=== PATIENT | female | born 1975 | race Caucasian/White ===

== ENCOUNTER 2018-07-12 02:53 | Emergency (ER) | payer OTHER ==
[~2018-07-12] VITALS: Ht 162.6 cm; Wt 77.1 kg
--- NOTE | 2018-07-12 03:28 | PHYS DOC ---
Past Medical History Past Medical History: Additional Disease Additional Past Medical Histor: shingles Past Surgical History: Appendectomy, Cholecystectomy, Other Additional Past Surgical Histo: IVF Alcohol Use: None Drug Use: None Adult General Chief Complaint Chief Complaint: ANXIETY/PANIC ATTACK HPI HPI Patient is a 43 yo female w/ pmh anxiety and panic attack who presents with complaint of shortness of breath and "feeling weird". Patient reports she was laying in bed when she felt short of breath, began seeing spots as though she would faint, and feeling "not right". She has had previous episodes of anxiety/ panic attacks and is not on medication. Patient attempted to calm herself by taking her pulse, focusing on her breathing, and waking her to sit with her. She continued to feel altered and called EMS for transport to the hospital. Patient denies chest pain throughout the whole event. She admits that she has had one previous similar incident in January 2018 and was treated for anxiety at [facility]. Patient denies increased stress and cannot identify trigger for tonight's symptoms. She denies recent travel. Denies chest pain, headaches, nausea, vomiting, abdominal pain, diarrhea or painful urination. Does admit to chronic pain in L shoulder and has appointment with PCP ( Maria G Becerra) on Friday. She reports she should begin period "any day now". Patient also admits to being a heavy smoker but denies alcohol, drug, or weight loss substances. Review of Systems Review of Systems Constitutional: Denies fever or chills [] Eyes: Denies change in visual acuity, redness, or eye pain. Admits to redness and pressure in L eye for 2 months which has been evaluated by physician. HENT: Denies nasal congestion or sore throat [] Respiratory: Denies cough. Admits shortness of breath. Cardiovascular: Denies chest pain, admits to feeling like she has irregular heart beat. GI: Denies abdominal pain, nausea, vomiting, bloody stools or diarrhea [] : Denies dysuria or hematuria [] Musculoskeletal: Denies back pain or joint pain. Denies extremity swelling, Denies muscle aches or pain. Integument: Denies rash or skin lesions Neurologic: Denies headache, focal weakness or sensory changes. Admits to "feeling as though she would pass out" Complete systems were reviewed and found to be within normal limits, except as documented in this note. Current Medications Current Medications Current Medications Medications (Trade) Dose Ordered Sig/Karuna Start Time Stop Time Status Last Admin Dose Admin Lorazepam (Ativan) 0.5 mg 1X ONCE 07/12/18 03:30 07/12/18 03:31 DC 07/12/18 03:34 0.5 MG Allergies Allergies Allergies Coded Allergies Type Severity Reaction Last Updated Verified Penicillins Allergy Intermediate 07/12/18 Yes Physical Exam Physical Exam Constitutional: Well developed, well nourished, non-toxic appearance. [] HENT: Normocephalic, atraumatic, oropharynx moist, no oral exudates, nose normal. [] Eyes: PERRLA, EOMI, mild conjunctival erythema medial aspect L eye, no discharge. [] Neck: Normal range of motion, no tenderness, supple, no stridor. No thyromegaly. Cardiovascular:Heart rate regular rhythm, no murmur [] Lungs & Thorax: Bilateral breath sounds clear to auscultation [] Abdomen: Soft, no tenderness, no masses, no pulsatile masses. [] Skin: Warm, dry, no erythema, no rash. [] Back: No tenderness, no CVA tenderness. [] Extremities: No tenderness, no cyanosis, no clubbing, ROM intact, no edema. [] Neurologic: Alert and oriented X 3, normal motor function, normal sensory function, no focal deficits noted. [] Psychologic: Affect normal, judgement normal, mood normal. [] Current Patient Data Vital Signs Vital Signs Date Time Temp Pulse Resp B/P (MAP) Pulse Ox O2 Delivery O2 Flow Rate FiO2 07/12/18 02:58 97.7 99 18 146/78 (100) 99 Room Air 97.7 Lab Values Laboratory Tests Test 07/12/18 02:58 07/12/18 03:00 07/12/18 03:13 Urine Collection Type Unknown Urine Color Yellow Urine Clarity Clear Urine pH 5.0 Urine Specific [place] 1.010 Urine Protein Negative mg/dL (NEG-TRACE) Urine Glucose (UA) Negative mg/dL (NEG) Urine Ketones (Stick) Negative mg/dL (NEG) Urine Blood Negative (NEG) Urine Nitrite Negative (NEG) Urine Bilirubin Negative (NEG) Urine Urobilinogen Dipstick 0.2 mg/dL (0.2 mg/dL) Urine Leukocyte Esterase Negative (NEG) Urine RBC 0 /HPF (0-2) Urine WBC 1-4 /HPF (0-4) Urine Squamous Epithelial Cells Mod /LPF Urine Bacteria Few /HPF (0-FEW) Urine Mucus Slight /LPF Urine Opiates Screen Neg (NEG) Urine Methadone Screen Neg (NEG) Urine Barbiturates Neg (NEG) Urine Phencyclidine Screen Neg (NEG) Urine Amphetamine/Methamphetamine Neg (NEG) Urine Benzodiazepines Screen Neg (NEG) Urine Cocaine Screen Neg (NEG) Urine Cannabinoids Screen Neg (NEG) Urine Ethyl Alcohol Neg (NEG) White Blood Count 7.5 x10^3/uL (4.0-11.0) Red Blood Count 5.13 x10^6/uL (3.50-5.40) Hemoglobin 14.0 g/dL (12.0-15.5) Hematocrit 41.1 % (36.0-47.0) Mean Corpuscular Volume 80 fL (79-100) Mean Corpuscular Hemoglobin 27 pg (25-35) Mean Corpuscular Hemoglobin Concent 34 g/dL (31-37) Red Cell Distribution Width 14.4 % (11.5-14.5) Platelet Count 133 x10^3/uL (140-400) L Neutrophils (%) (Auto) 63 % (31-73) Lymphocytes (%) (Auto) 29 % (24-48) Monocytes (%) (Auto) 6 % (0-9) Eosinophils (%) (Auto) 1 % (0-3) Basophils (%) (Auto) 1 % (0-3) Neutrophils # (Auto) 4.8 x10^3uL (1.8-7.7) Lymphocytes # (Auto) 2.2 x10^3/uL (1.0-4.8) Monocytes # (Auto) 0.4 x10^3/uL (0.0-1.1) Eosinophils # (Auto) 0.1 x10^3/uL (0.0-0.7) Basophils # (Auto) 0.1 x10^3/uL (0.0-0.2) Sodium Level 140 mmol/L (136-145) Potassium Level 3.6 mmol/L (3.5-5.1) Chloride Level 102 mmol/L (98-107) Carbon Dioxide Level 26 mmol/L (21-32) Anion Gap 12 (6-14) Blood Urea Nitrogen 11 mg/dL (7-20) Creatinine 0.7 mg/dL (0.6-1.0) Estimated GFR (Cockcroft-Gault) 92.2 BUN/Creatinine Ratio 16 (6-20) Glucose Level 95 mg/dL (70-99) Calcium Level 9.2 mg/dL (8.5-10.1) Magnesium Level 1.9 mg/dL (1.8-2.4) Total Bilirubin 0.3 mg/dL (0.2-1.0) Aspartate Amino Transferase (AST) 27 U/L (15-37) Alanine Aminotransferase (ALT) 43 U/L (14-59) Alkaline Phosphatase 80 U/L (46-116) Troponin I Quantitative < 0.017 ng/mL (0.000-0.055) Total Protein 7.3 g/dL (6.4-8.2) Albumin 4.0 g/dL (3.4-5.0) Albumin/Globulin Ratio 1.2 (1.0-1.7) Ethyl Alcohol Level < 10 mg/dL (0-10) POC Urine HCG, Qualitative Hcg negative (Negative) Laboratory Tests 07/12/18 03:00 Laboratory Tests 07/12/18 03:00 EKG EKG @0326; HT 70 BPM; Sinus rhythm. Radiology/Procedures Radiology/Procedures [] Course & Med Decision Making Course & Med Decision Making Patient is 43 yo female smoker w/ PMH anxiety and panic attacks who presents w/ complaint of shortness of breath and "not feeling right". Patient reports her symptoms felt similar to a previous anxiety attack however they are more intense tonight. She denies chest pain during the event. On physical exam patient is in no acute distress and resting comfortably in bed, however she did begin to cry when asking about HPI. Patient was never tachycardic or hypoxic. EKG revealed normal sinus rhythm however cardiac monitoring showed intermittent single PVCs. Lab work was WNL. Patient treated with ativan with adequate symptomatic relief. Discussed with patient that symptoms were likely d/t anxiety , although we cannot discover the etiology of the PVCs. Recommended to patient that she was okay to dc home but should follow up with PCP and career counselor. Gave patient contact information for [facility]. Patient voiced understanding and agreement with the plan to dc home with follow up. Recommended to the patient to return to ED if symptoms returned. Dragon Disclaimer Dragon Disclaimer This electronic medical record was generated, in whole or in part, using a voice recognition dictation system. Departure Departure Impression: Primary Impression: Palpitation Disposition: HOME, SELF-CARE Condition: STABLE Referrals: TUAN CARTAGENA (PCP) ZOE VENEGAS MD Patient Instructions: Palpitations, [id number] DEEP HOFF DO Jul 12, 2018 03:28
[2018-07-12 04:04] LABS: BASO # 0.1 x10^3/uL (0.0-0.2); BASO % 1 % (0-3); EOS # 0.1 x10^3/uL (0.0-0.7); EOS % 1 % (0-3); HEMATOCRIT 41.1 % (36.0-47.0); LYMPH # 2.2 x10^3/uL (1.0-4.8); LYMPH % 29 % (24-48); MEAN CORPUSCULAR HEMOGLOBIN 27 pg (25-35); MEAN CORPUSCULAR HGB CONC 34 g/dL (31-37); MEAN CORPUSCULAR VOLUME 80 fL (79-100); MONO # 0.4 x10^3/uL (0.0-1.1); MONO % 6 % (0-9); NEUT # 4.8 x10^3uL (1.8-7.7); NEUT % 63 % (31-73); PLATELET COUNT 133 x10^3/uL (140-400); RED BLOOD COUNT 5.13 x10^6/uL (3.50-5.40); RED CELL DISTRIBUTION WIDTH 14.4 % (11.5-14.5); WHITE BLOOD COUNT 7.5 x10^3/uL (4.0-11.0)
[2018-07-12 04:06] LABS: BILIRUBIN,URINE NEGATIVE (NEG); CLARITY,URINE CLEAR; COLOR,URINE YELLOW; NITRITE,URINE NEGATIVE (NEG); PROTEIN,URINE NEGATIVE (NEG-TRACE); UROBILINOGEN,URINE 0.2 mg/dL (0.2 mg/dL)
[2018-07-12 04:18] LABS: SQUAMOUS EPITHELIAL CELL,UR MOD /LPF
[2018-07-12 04:19] LABS: BACTERIA,URINE FEW /HPF (0-FEW); RBC,URINE 0 /HPF (0-2)
[2018-07-12 04:28] LABS: BARBITURATES NEG (NEG); BENZODIAZEPINES NEG (NEG); CANNABINOIDS NEG (NEG); COCAINE NEG (NEG); METHADONE NEG (NEG); OPIATES NEG (NEG); PHENCYCLIDINE NEG (NEG)
[2018-07-12 04:29] LABS: CALCIUM 9.2 mg/dL (8.5-10.1); CREATININE 0.7 mg/dL (0.6-1.0); GFR 92.2; POTASSIUM 3.6 mmol/L (3.5-5.1)
[2018-07-12 04:30] VITALS: BP 110/63
[2018-07-12 04:31] LABS: AMPHETAMINE/METHAMPHETAMINE NEG (NEG)
[2018-07-12 04:35] LABS: ALBUMIN/GLOBULIN RATIO 1.2 (1.0-1.7); MAGNESIUM 1.9 mg/dL (1.8-2.4); TOTAL BILIRUBIN 0.3 mg/dL (0.2-1.0); TOTAL PROTEIN 7.3 g/dL (6.4-8.2)
[2018-07-12 04:46] LABS: FREE T4 1.05 ng/dL (0.76-1.46); THYROID STIM HORMONE (TSH) 3.088 uIU/mL (0.358-3.74)
--- NOTE | 2018-07-12 07:30 | EKG ---
[facility] [address] [place] [address] Test Date: 2018-07-12 Test Time: 03:26:34 Pat Name: MARIA M CAIN Department: Room: Gender: F Chief Financial Officer: : 1975 Requested By: DEEP HOFF Order Number: [id number] Reading MD: Measurements Intervals [place] Rate: 70 P: 28 [place]: 158 QRS: 14 QRSD: 82 T: 13 QT: 360 QTc: 391 Interpretive Statements SINUS RHYTHM NORMAL ECG RI6.01 No previous ECG available for comparison
== END 2018-07-12 04:45 | disposition home or self-care (01) ==
LOC: ER 02:53
DX: R00.2 Palpitations (principal); G89.29 Other chronic pain; M25.512 Pain in left shoulder; F17.200 Nicotine dependence, unspecified, uncomplicated; F41.0 Panic disorder [episodic paroxysmal anxiety]; Z90.49 Acquired absence of other specified parts of digestive tract; Z90.89 Acquired absence of other organs; Z88.0 Allergy status to penicillin
CPT/HCPCS: 36415; 80053; 80307; 81001; 81025; 82553; 83735; 84439; 84443; 84481; 84484; 85025; 93005; 96374; 99284; G0480; J2060

== ENCOUNTER → 2019-07-05 | Outpatient (CLI) | payer OTHER ==
--- NOTE | 2019-07-05 10:57 | KCIC ---
CERVICAL SPINE WO CONTRAST History: Chronic neck pain. Radiculopathy left upper extremity. Left upper extremity weakness. Technique: Multiplanar, multi sequential noncontrast MR imaging was performed of the cervical spine. Comparison: None Findings: Normal vertebral body height and alignment. No fracture. No pathologic signal abnormality within the cervical spinal cord. C2-C3: No canal or neuroforaminal narrowing. C3-C4: No canal or neuroforaminal narrowing. C4-C5: No canal or neuroforaminal narrowing. Early facet arthropathy. C5-C6: Small posterior disc bulge. Minimal cord flattening. No canal or neuroforaminal narrowing. Early facet arthropathy. C6-C7: No canal or neuroforaminal narrowing. C7-T1: No canal or neuroforaminal narrowing. Impression: 1. Mild multilevel cervical spondylosis most prominent C5-C6 with minimal cord flattening. No significant canal or neuroforaminal narrowing. Electronically signed by: Davy Berg DO (07/05/2019 10:54 AM) [facility]
== END | disposition home or self-care (01) ==
LOC: KCIC MRI 10:08
DX: M47.812 Spondylosis without myelopathy or radiculopathy, cervical region (principal); M12.88 Other specific arthropathies, not elsewhere classified, other specified site; Z90.49 Acquired absence of other specified parts of digestive tract; Z90.89 Acquired absence of other organs
CPT/HCPCS: 72141

== ENCOUNTER 2020-12-20 22:47 | Emergency (ER) | payer OTHER ==
[~2020-12-20] VITALS: Ht 162.6 cm; Wt 77.3 kg
--- NOTE | 2020-12-21 01:14 | ED.ADGEN ---
Past Medical History Past Medical History: Anxiety, High Cholesterol, UTI Additional Past Medical Histor: shingles, PALPITATIONS, PVC'S Past Surgical History: Appendectomy, Cholecystectomy, Tonsillectomy, Other Additional Past Surgical Histo: IVF Smoking Status: Current Every Day Smoker Alcohol Use: None Drug Use: None General Adult EDM: Chief Complaint: HEADACHE HPI: HPI: Patient is a 45-year-old previously healthy female who presents to the emergency room complaining of a left-sided headache from the front of her head to the back and into her neck. She states that the pain in her left side of the neck feels like tension. She states she has had a headache all day and it is progressively gotten worse. She has had headaches similar to this in the past. She denies an y fever, neck stiffness, confusion, numbness, weakness, cough, URI symptoms. She has not been ill recently. She has not tried to take anything for her pain. Patient states that she has bad anxiety and tonight when she laid down to go to sleep she started feeling anxious that she still had a headache and thought maybe something is wrong with her. Review of Systems: Review of Systems: Complete ROS is negative unless otherwise documented in HPI Current Medications: Current Medications Medications (Trade) Dose Ordered Sig/Karuna Start Time Stop Time Status Last Admin Dose Admin Ketorolac Tromethamine (Toradol 30mg Vial) 30 mg 1X ONCE 12/21/20 01:30 12/21/20 01:31 DC 12/21/20 01:20 30 MG Allergies: Allergies: Allergies Coded Allergies Type Severity Reaction Last Updated Verified Penicillins Allergy Intermediate 07/12/18 Yes Physical Exam: PE: General: Awake, alert, NAD. Well Nourished, well hydrated. Cooperative HEENT: Atraumatic, EOMI, PERRL, airway patent, moist oral mucosa Neck: Supple, trachea midline Respiratory: CTA bilaterally, normal effort, no wheezing/crackles CV: RRR, no murmur, cap refill <2 GI: Soft, nondistended, nontender, no masses MSK: No obvious deformities Skin: Warm, dry, intact Neuro: A&O x3, speech NL, 5/5 strength in BUE/BLE distally and proximally, CN 2- 12 intact, cerebellar testing normal Psych: Normal affect, normal mood, not suicidal or homicidal Current Patient Data: Labs: Laboratory Tests Test 12/20/20 23:50 POC Urine HCG, Qualitative Hcg negative (Negative) Vital Signs: Vital Signs Date Time Temp Pulse Resp B/P (MAP) Pulse Ox O2 Delivery O2 Flow Rate FiO2 12/20/20 23:48 98.2 59 20 154/76 (102) 98 Room Air 98.2 EKG: EKG: [] Heart Score: C/O Chest Pain: N/A Risk Factors: Risk Factors: DM, Current or recent (<one month) smoker, HTN, HLP, family history of CAD, obesity. Risk Scores: Score 0 - 3: 2.5% MACE over next 6 weeks - Discharge Home Score 4 - 6: 20.3% MACE over next 6 weeks - Admit for Clinical Observation Score 7 - 10: 72.7% MACE over next 6 weeks - Early Invasive Strategies Radiology/Procedures: Radiology/Procedures: [] Course & Med Decision Making: Course & Med Decision Making Pertinent Labs and Imaging studies reviewed. (See chart for details) Patient is a 45-year-old female who presents to the emergency room complaining of headache. Patient's headache is consistent with a tension-like headache. Patient has no neurologic deficits. She does not have a fever. She does not try to take anything for headache at home. She does not have any risk factors of having an invasive infection. She did not have a sudden onset headache that would be suggestive of a subarachnoid hemorrhage. She will be given Toradol for pain. Headache resolved with Toradol. Patient's test results and vitals while in the ED were fully reviewed and discussed with the patient. Patient is stable and at this time does not need admission to the hospital. We have discussed strict return precautions and the importance of following up with their Primary Care Physician. Patient stated understanding and was given an opportunity to ask any questions. Patient is in agreement with plan. [place] Disclaimer: Salud Disclaimer: This electronic medical record was generated, in whole or in part, using a voice recognition dictation system. Departure Departure Impression: Primary Impression: Headache Disposition: HOME / SELF CARE / HOMELESS Condition: STABLE Referrals: JOY GARNICA (PCP) Patient Instructions: General Headache Without Cause MATTHEW STALLWORTH MD Dec 21, 2020 01:14
[2020-12-21] MEDS ORDERED: KETOROLAC 30 MG/ML VIAL. IVP ONE (01:30)
[2020-12-21 02:40] VITALS: BP 122/55
== END 2020-12-21 02:47 | disposition home or self-care (01) ==
LOC: ER 22:47
DX: R51.9 Headache, unspecified (principal); M54.2 Cervicalgia; E78.00 Pure hypercholesterolemia, unspecified; F17.200 Nicotine dependence, unspecified, uncomplicated; Z88.0 Allergy status to penicillin
CPT/HCPCS: 81025; 96374; 99285; J1885